=== PATIENT | female | born 1955 | race Caucasian/White ===

== ENCOUNTER 2016-11-04 22:57 | Observation (INO) | payer BC ==
--- NOTE | ~2016-11-04 | CR72 ---
[facility] A Service of [facility] RADIOLOGY TEXT RESULTS PATIENT: ROBY PERDOMO LOCATION: [facility] : 54 UNIT #: [id number] AGE: [address]: Bin Evans MD SEX: F ORDER DR: [id number] [facility] [address]. [place], [place] [address] [id number] I MR#: [id number] Acc #: [id number] NAME: ROBY PERDOMO. : 1955 SEX: F STUDY DATE/TIME: 11/05/2016 UNIT: [facility] ROOM: [id number] STUDY DESCRIPTION: CR Chest Single View Portable Attending Physician: Bin Evans M.D. Ordering Physician: Zfaar Qiu M.D. Primary Care Physician: Dallas Riojas M.D. MEDICAL IMAGING REPORT This report is preliminary unless electronic signature is present EXAM Portable chest 11/05 00:43 hours INDICATIONS Chest pain, shortness of air for 1 day. FINDINGS AP portable chest is compared with 05/11/2014. Cardiac and mediastinal contours are normal. Patient is status post sternotomy. The lungs are clear. No pneumothorax. IMPRESSION Sternotomy changes. No active disease. Dictated by... Edi Norris Jr., M.D. THIS IS AN ELECTRONICALLY VERIFIED REPORT Edi Norris Jr., M.D. at 11/05/2016 11:15 AM FRANCO/briseyda TD: 11/05/2016 07:59 JOB #: [id number] MEDICAL IMAGING REPORT Page 1 of 1 COPY
--- NOTE | ~2016-11-04 | NM69 ---
[facility] A Service of [facility] RADIOLOGY TEXT RESULTS PATIENT: ROBY PERDOMO LOCATION: [facility] [address] : 53 UNIT #: [id number] AGE: [address]: Bin Evans MD SEX: F ORDER DR: [id number] [facility] [address] [facility]. [place], [place] [address] [id number] I MR#: [id number] Acc #: [id number] NAME: ROBY PERDOMO. : 1955 SEX: F STUDY DATE/TIME: 11/05/2016 UNIT: [facility] ROOM: [facility] STUDY DESCRIPTION: NM Pulm Vent and Perf Attending Physician: Bin Evans M.D. Ordering Physician: Zafar Qiu M.D. Primary Care Physician: Dallas Riojas M.D. MEDICAL IMAGING REPORT This report is preliminary unless electronic signature is present EXAM VQ scan 11/05 at 03:37 hours INDICATIONS Chest pain, shortness of air and fatigue that started 1 week ago. FINDINGS Ventilation images were obtained after the administration of 36.0 mCi of technetium 99m-DTPA aerosol. Corresponding perfusion images were obtained after the IV administration of 5.6 mCi of technetium 99m-MAA. Comparison made with chest x-ray from 11/05/2016 as well as a prior VQ scan from 05/05/2014. Ventilation perfusion tracer deposition in the lungs is homogeneous. No VQ mismatches are seen. There are no segmental perfusion defects. The study is very low probability for pulmonary embolism. IMPRESSION Very low probability for pulmonary embolism. Dictated by... Edi Norris Jr., M.D. THIS IS AN ELECTRONICALLY VERIFIED REPORT Edi Norris Jr., M.D. at 11/05/2016 11:15 AM FRANCO/briseyda TD: 11/05/2016 08:38 JOB #: [id number] MEDICAL IMAGING REPORT [facility] A Service of [facility] RADIOLOGY TEXT RESULTS PATIENT: ROBY PERDOMO LOCATION: [facility] 5[address]- : 54 UNIT #: [id number] AGE: [address]: Bin Evans MD SEX: F ORDER DR: Page 1 of 1 COPY
--- NOTE | ~2016-11-04 | EKG ---
PATIENT: ROBY PERDOMO UNIT #: [id number] Ventricular Rate: 85 BPM Atrial Rate: 85 BPM P-R Interval: 166 ms QRS Duration: 92 ms Q-T Interval: 384 ms QTC Calculation(Bezet): 456 ms P [place]: 25 degrees Calculated R [place]: -5 degrees Calculated T [place]: 89 degrees Diagnosis Line: Normal sinus rhythm Diagnosis Line: Nonspecific T wave abnormality Diagnosis Line: Abnormal ECG Diagnosis Line: No previous ECGs available Diagnosis Line: Confirmed by LIZ PRETSON MD ([id number]) on 11/05/2016 Diagnosis Line: 10:45:51 PM INTERPRETING MD: MOHAN MELARA
--- NOTE | ~2016-11-04 | DS ---
Unit #: [id number] #: [id number] Patient: ROBY PERDOMO [id number] [address] [place], [place] [address] [id number] I MR#: [id number] NAME: ROBY PERDOMO. ROOM: 563 Age: Sex: F Admission Date: 11/05/2016 : 1955 Discharge Date: 11/05/2016 Attending Physician: Bin Evans M.D. Primary Care Physician: Dallas Riojas M.D. DISCHARGE SUMMARY ADMITTING DIAGNOSES 1. Chest pain. 2. Hypertension. 3. Untreated sleep apnea. 4. Recent total knee replacement on 10/22/16. 5. 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 DISCHARGE DIAGNOSES 1. Chest pain, presumed noncardiac based on testing. 2. Hypertension. 3. Untreated sleep apnea. 4. Recent total knee replacement on 10/22/16. 5. 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 DIAGNOSTIC STUDIES CARDIOVASCULAR: A Dobutamine stress echo is in progress currently and will be read prior to discharge. If normal, she will be discharged home. If abnormal, there will be an addendum to this dictation. IMAGING: VQ scan has been completed, which showed very low probability for PE. Chest x-ray shows sternotomy changes with no active disease. PERTINENT LABS DURING HOSPITALIZATION: Troponin less than 0.03 x2. Sodium 138, potassium 4.1, glucose 94, BUN 35, creatinine 1.4, AST 20, ALT 17, albumin 3.8. PT 12.7, INR 1.2. Hemoglobin 11.4, hematocrit 35.2, platelets 325, white blood cell count 11.8. HOSPITAL COURSE Ms Perdomo is a 61-year-old female who completed right total knee replacement 2 weeks ago today. She has been convalescing from this surgery and has had 3 episodes of pressure in the center of her chest with no radiation. It has been accompanied with shortness of breath and nausea but no vomiting or diaphoresis. The last episode was 9 p.m. last evening, and she arrived at [facility] Emergency Room at approximately 10 p.m. and has been evaluated with a cardiac workup. Her troponin has been negative indicating no acute coronary syndrome, but she has completed a dobutamine stress echo for risk stratification. She is currently chest pain free. She is feeling well. DISCHARGE MEDICATIONS Unit #: [id number] #: [id number] Patient: ROBY PERDOMO 1. Fioricet 5/300/40 one tablet daily as needed for headache. 2. Effexor daily. 3. Alprazolam 0.5 mg daily. 4. Norvasc daily. 5. Hydrochlorothiazide daily. 6. Lipitor daily. 7. Aspirin 325 mg daily. 8. Diclofenac daily. 9. Oxycodone/acetaminophen 5/325 mg 1 tablet q.4 hours as needed for knee pain. NOTE: Of note, no changes have been made to her home medication list during hospitalization. DISCHARGE INSTRUCTIONS 1. Diet: Regular diet. 2. Activity: As tolerated, per rehab protocol at physical therapy. 3. She will need to follow up with Dr. Fofana in the cardiology clinic in the next 6 weeks. 4. She may follow up with her regularly scheduled appointments with orthopedics and with primary care, as well. NOTE: She will have complete reading of her dobutamine stress echo prior to discharge today, and if normal, she will be discharged home. If abnormal, an addendum will be noted. Dictated by... Karla Ashton.P.R.N. for Anant Mijares/corinna TD: 11/06/2016 08:26 JOB #: [id number] DISCHARGE SUMMARY Page 1 of 1 X X DISCHARGE SUMMARY
--- NOTE | ~2016-11-04 | HP ---
Unit #: [id number] #: [id number] Patient: ROBY PERDOMO [id number] [facility]. [place], [place] [address] [id number] I MR#: [id number] NAME: ROBY PERDOMO ROOM: 563 Age: 61 Sex: F Admission Date: 11/05/2016 : 1955 Attending Physician: Bin Evans M.D. Primary Care Physician: Dallas Riojas M.D. HISTORY AND PHYSICAL CHIEF COMPLAINT Chest pain. PRIMARY CARE Dr. Riojas PRIMARY NURSING EXECUTIVE Dr. Keller HISTORY OF PRESENT ILLNESS Ms. Perdomo is a 61-year-old female with a history of left atrial excision myxoma in 2008. She has been doing well and on 10/22/2016 had a right total knee replacement. She had been resting and recovering from this surgery and one week ago developed pressure in the center of her chest in the middle of the night that lasted for several hours. She thought it was indigestion and it spontaneously resolved. The same symptom appeared again two days ago in the afternoon while resting. This episode was much shorter in duration. Last night around 9 p.m., she also had another episode of this chest pressure in the center of her chest with no radiation. This is accompanied with shortness of breath and nausea but no vomiting or diaphoresis. No dizziness or lightheadedness. The episode last night lasted approximately one hour. She arrived at [facility] emergency room at 10:03 p.m. She was evaluated and admitted for cardiac workup. Currently during my interview, she is chest pain free and feeling well. This information is received from the patient during interview at the bedside with her in the room with her. I have also reviewed prior records. PRIOR CARDIAC TESTING HISTORY She states that she has had a stress test since her left atrial myxoma excision in 2008 but she is unable to remember when that was. PAST MEDICAL HISTORY Includes: 1. Hypertension. 2. Bilateral knee replacement with the right being on 10/22/2016. 3. Bladder repair. 4. Anxiety. 5. Hysterectomy. 6. Open heart surgery for excision of left atrial myxoma in 2008. 7. Left foot surgery. 8. Breast reduction. 9. Remote hepatitis. 10. Anemia. Unit #: [id number] #: [id number] Patient: ROBY PERDOMO 11. Obstructive sleep apnea for which she is intolerant to CPAP. 12. Feet and ankle osteoarthritis as well as back osteoarthritis. ALLERGIES She is allergic to codeine and hydrocodone. HOME MEDICATION They include the followin. Butalbital/aspirin/caffeine tablet, one daily. 2. Alprazolam 0.5 mg tablet daily. 3. Clotrimazole cream two affected areas sparingly two times a day. 4. Aspirin 325 mg daily for 42 days. 5. Hydrocodone/acetaminophen 5/325, one tablet to two tablets by mouth q.4 hours as needed for pain up to seven days. SOCIAL HISTORY She denies ever using tobacco or drugs. She drinks alcoholic beverages rarely. FAMILY HISTORY Her mother had multiple cardiac issues including valvular repair in 1962 and at the age of 77. Father had no heart issues. Brother had an NV in his 50s. REVIEW OF SYSTEMS GENERAL: Denies any fever, chills, flu-like symptoms or unintentional weight loss. SKIN: Denies any rashes, ulcerations or wounds. HEADACHE: Denies any increase in headaches. EYES: Denies any sudden change in vision. EARS: Denies any sudden change in hearing. BLEEDING: Denies epistaxis, hemoptysis, hematuria or melena. THROAT: Denies any problems swallowing. LUNGS: Denies any wheeze. Positive for recent cough and some shortness of breath. CHEST: Positive for pain. Occasional palpitations and tachycardia. No PND or orthopnea. GI: Positive for nausea and she has been dealing with alternating diarrhea and constipation since her knee replacement. : Denies any burning or urgency. EXTREMITIES: She has had some right leg swelling since surgery. SPINE: She has had some osteoarthritis, chronic pains of her back for several years. NEURO: Denies any numbness, tingling, seizures, stroke-like symptoms, dizziness. Positive unsteadiness since surgery. No falls. She does state that she has been feeling weak and somewhat shaky since her surgery. PHYSICAL EXAMINATION VITAL SIGNS: Blood pressure is 141/70, heart rate is 83, respirations 17, temperature is 98.6, 230 pounds. GENERAL: Well developed, well nourished white female in no acute distress, resting in the bed. SKIN: No obvious rashes or ulcerations noted. She does have arias present at the right knee. EYES: PERRLA. No xanthelasma. ORAL: Good dentition. Moist mucous membranes. No pallor. NECK: No carotid bruits auscultated bilaterally. No jugular vein distention. Unit #: [id number] #: [id number] Patient: ROBY PERDOMO SPINE: No scoliosis. CHEST: Clear to auscultation bilaterally. No wheezes, rales or rhonchi. CARDIAC: S1 and S2. No murmur, rub, gallop or lift. ABDOMEN: Soft, nontender. Positive bowel sounds. EXTREMITIES: Bilateral pedal pulses +2. No edema. NEURO: Alert and oriented x3. Speech is clear. No obvious neuro deficits. CURRENT LABS/TESTS IMAGING: V/Q scan which shows low probability for PE. Chest x-ray shows sternotomy changes but no active disease. LABORATORY: Cholesterol 147, LDL 80, HDL 38, magnesium 1.7. Troponin less than 0.03 x2. Sodium 138, potassium 4.1, glucose 94, BUN 35, creatinine 1.4. AST 20, ALT 17. Albumin 3.8. PT 12.7, INR 1.2. Hemoglobin 11.4, hematocrit 35.2, platelets 325 and white blood cell count 11.8. IMPRESSION 1. Chest pain. 2. Hypertension. 3. Untreated obstructive sleep apnea. 4. Recent total knee replacement on 10/22/2016. 5. 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 PLAN We will complete a Lexiscan Cardiolite stress test and a 2D echocardiogram. Her troponin shows no acute coronary syndrome. We will rule out cardiac causes for her chest pain by stress testing. If normal, she will be discharged home today. Dr. Fofana to follow and make further recommendations if needed. Dictated by Fadumo AshtonPShaniceRShaniceNShanice for Lg Fofana M.D. Leroy TD: 11/05/2016 09:19 JOB #: [id number] Unit #: [id number] #: [id number] Patient: ROBY PERDOMO HISTORY AND PHYSICAL Page 1 of 1 X X HISTORY AND PHYSICAL
[~2016-11-04 22:57] MED LIST: EFFEXOR PO; LOTREL PO; TOPROL XL PO
[2016-11-04 23:03] LABS: POC - CKMB 1.4 ng/mL (0.0-7.9); POC - TROPONIN <0.05 ng/mL (<=0.05)
[2016-11-04 23:16] LABS: BASOPHIL# 0.1 X10e3 (0-0.3); BASOPHIL% 0.7 % (0-2.5); DIFF IND NO; EOSINOPHIL# 0.4 X10e3 (0-0.7); EOSINOPHIL% 3.2 % (0.0-7.0); HEMATOCRIT 35.2 % (35.0-45.0); HEMOGLOBIN 11.4 gm/dL (12.0-16.0); LYMPHOCYTE# 2.2 X10e3 (1.0-3.5); LYMPHOCYTE% 18.9 % (17.0-45.0); MEAN CORPUSCULAR HEMOGLOBIN 30.1 PG (28-34); MEAN CORPUSCULAR HGB CONC 32.4 g/dL (30-36); MEAN PLATELET VOLUME 8.5 FL (6.5-11.5); MONOCYTE% 8.6 % (3.0-12.0); NEUTROPHIL# 8.1 X10e3 (1.5-7.1); NEUTROPHIL% 68.6 % (40-75); PLATELET COUNT 325 X10e3 (140-420); RED BLOOD COUNT 3.79 X10e (3.90-5.30); RED CELL DISTRIBUTION WIDTH 13.1 % (11.0-15.5); WHITE BLOOD COUNT 11.8 X10e3 (4.0-10.5)
[2016-11-04 23:32] LABS: INR 1.2; PARTIAL THROMBOPLASTIN TIME 24.9 SECONDS (23.5-31.3); PROTHROMBIN TIME (PATIENT) 12.7 SECONDS (9.6-11.5)
[2016-11-04 23:38] LABS: ALBUMIN SERUM 3.8 g/dL (3.5-5.0); BILIRUBIN, DIRECT 0.1 mg/dL (0.0-0.2); BILIRUBIN,INDIRECT 0.4 mg/dL (0.0-0.9); BILIRUBIN,TOTAL 0.5 mg/dL (0.2-2.0); CALCIUM SERUM 9.2 mg/dL (8.4-10.2); CREATININE SERUM 1.4 mg/dL (0.6-1.4); GLOM FILT RATE Estimated 40.2 mL/min (>60); POTASSIUM 4.1 mmol/L (3.5-5.1); PROTEIN TOTAL SERUM 7.3 g/dL (6.0-8.3)
[2016-11-05 00:29] LABS: POC - CKMB 1.4 ng/mL (0.0-7.9); POC - TROPONIN <0.05 ng/mL (<=0.05)
[2016-11-05] MEDS ORDERED: LIPITOR (03:45)
[2016-11-05] MEDS ORDERED: BACTRIM DS TAB1 EACH (03:46)
[2016-11-05] MEDS ORDERED: ASPIR-TRIN325 MG PO (03:46)
[2016-11-05] MEDS ORDERED: CAPOZIDE (03:46)
[2016-11-05] MEDS ORDERED: DICLOFENAC (03:46)
[2016-11-05] MEDS ORDERED: OXYCODONE-ACET1 EACH PO (05:01)
[2016-11-05] MEDS ORDERED: ALPRAZOLAM0.5 MG PO (05:01)
[2016-11-05] MEDS ORDERED: FIORICET 50-301 EACH PO (05:02)
[2016-11-05] MEDS ORDERED: HCTZ (05:03)
[2016-11-05] MEDS ORDERED: NORVASC PO (05:04)
[2016-11-05 08:47] LABS: MAGNESIUM 1.7 mg/dL (1.6-3.0)
[2016-11-05 09:18] LABS: %MB 3.6 % (0.0-4.0); MB 2.2 ng/ml
[2016-11-05 14:32] LABS: %MB 3.9 % (0.0-4.0); MB 2.4 ng/ml
== END 2016-11-05 20:15 | disposition home or self-care (01) | DRG 313 ==
LOC: CED 22:57 → CEDOF 11-05 03:54 → C5C 11-05 08:21
PROVIDERS: Emergency Medicine; Internal Medicine Cardiovascular Disease
DX: R07.89 Other chest pain (principal); I10 Essential (primary) hypertension; G47.33 Obstructive sleep apnea (adult) (pediatric); Z96.653 Presence of artificial knee joint, bilateral; Z82.49 Family history of ischemic heart disease and other diseases of the circulatory system; Z90.710 Acquired absence of both cervix and uterus; Z79.82 Long term (current) use of aspirin
CPT/HCPCS: 36415; 71010; 78582; 80048; 80061; 80076; 82550; 82553; 83735; 84484; 85025; 85610; 85730; 93005; 93351; 99285; A9540; A9567; G0378; J0461; J1250; J2270